=== PATIENT | male | born 2000 | race Caucasian/White ===

== ENCOUNTER 2018-02-16 22:08 | Emergency (ER) | payer BC, OTHER ==
[~2018-02-16] VITALS: Ht 180.3 cm; Wt 95.7 kg
[~2018-02-16 22:08] MED LIST: ALBUTEROL2.5 MG/31 INH; AZITHROMYCIN 2250 MG PO; BENZONATATE100 MG PO; PREDNISONE 20 M20 M1 PO; PROAIR HFA8.5 GM; PROMETHAZINE-D120 ML PO; SIDESTREAM NEB1 EACH MC
[2018-02-16] MEDS ORDERED: TRIAMCINOLONE A80 G2 TOP (22:31)
[2018-02-16] MEDS ORDERED: MUPIROCIN22 GM TOP (22:31)
[2018-02-16 22:54] VITALS: BP 137/68
== END 2018-02-16 22:56 | disposition home or self-care (01) ==
LOC: M.ERS 22:08
DX: R21 Rash and other nonspecific skin eruption (principal)

== ENCOUNTER 2020-08-07 12:50 | Emergency (ER) | payer OTHER ==
[~2020-08-07] VITALS: Ht 182.9 cm; Wt 99.8 kg
[~2020-08-07 12:50] MED LIST changes: +MUPIROCIN22 GM TOP; +TRIAMCINOLONE A80 G2 TOP
[2020-08-07 14:28] LABS: ABSOLUTE EOSINOPHILS 0.3 thou/uL (0.0-0.7); ABSOLUTE LYMPHOCYTES 1.4 thou/uL (0.8-5.3); ABSOLUTE NEUTROPHILS 2.5 thou/uL (1.6-8.1); BASOPHILS 0.4 %; HEMATOCRIT 42.9 % (42.0-52.0); HEMOGLOBIN 15.2 gm/dL (14.0-18.0); LYMPHOCYTES 27.9 %; MCH 28.7 pg (26.0-34.0); MCHC 35.4 g/dL (28.0-37.0); MCV 81.2 fL (80.0-100.0); MONOCYTES 19.3 %; MPV 7.3 fl. (7.2-11.1); NUCLEATED RBCS 0 /100WBC; PLATELET COUNT* 226 thou/uL (150-400); POLYS 47.4 %; RBC 5.29 mil/uL (4.50-6.00); WBC 5.2 thou/uL (4.0-11.0)
[2020-08-07 14:37] LABS: CALCIUM 8.2 mg/dL (8.5-10.1); CREATININE 1.2 mg/dL (0.6-1.3); POTASSIUM 3.7 mmol/L (3.5-5.1)
[2020-08-07 14:41] LABS: ALBUMIN 3.5 g/dL (3.4-5.0); TOTAL BILIRUBIN 0.6 mg/dL (<0.1-1.0); TOTAL PROTEIN 6.9 g/dL (6.4-8.2)
[2020-08-07] MEDS ORDERED: ZOFRAN ODT4 MG DISSOLVE (15:48)
[2020-08-07] MEDS ORDERED: BENTYL 10 MG CA10 M1 PO (15:48)
[2020-08-07 16:04] VITALS: BP 122/54
== END 2020-08-07 16:05 | disposition home or self-care (01) ==
LOC: M.ERS 12:50
PROVIDERS: Emergency Medicine Emergency Medical Services
DX: R10.31 Right lower quadrant pain (principal); R10.12 Left upper quadrant pain; R11.2 Nausea with vomiting, unspecified